=== PATIENT | female | born 1960 | race African-American/Black ===

== ENCOUNTER 2024-04-01 09:52 | Emergency (ER) | payer MEDICAID ==
[~2024-04-01] VITALS: Ht 160 cm; Wt 107.3 kg
[2024-04-01] MEDS ORDERED: LOSA-30 PO (10:04)
[2024-04-01] MEDS ORDERED: LOSA-381 PO (10:04)
[2024-04-01 10:07] VITALS: TEMP 98
[2024-04-01] MEDS: LIDOCAINE 1% 10 ML VIAL SQ ONE (11:28)
[2024-04-01 12:08] VITALS: BP 135/72; PULSE 60; RESP 20; O2SAT 99
[2024-04-01] MEDS ORDERED: SULF-261 PO (12:19)
[2024-04-01] MEDS ORDERED: CEPH-558 PO (12:19)
== END 2024-04-01 12:28 | disposition home or self-care (01) ==
LOC: EMS 09:52
DX: L02.211 Cutaneous abscess of abdominal wall (principal); I10 Essential (primary) hypertension; Z79.899 Other long term (current) drug therapy
CPT/HCPCS: 99283; 10060; J3490